=== PATIENT | female | born 1965 | race African-American/Black ===

== ENCOUNTER 2019-05-18 17:24 | Emergency (ER) | payer BC, SELFPAY ==
[2019-05-18 17:28] VITALS: BP 137/88; PULSE 87; RESP 24; TEMP 36.8; O2SAT 98
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
[2019-05-18] MEDS: LORAZEPAM 1 MG TABLET PO (17:54)
[2019-05-18 18:47] VITALS: BP 113/89; PULSE 79; RESP 20; O2SAT 99
== END 2019-05-18 18:48 | disposition home or self-care (01) ==
PROVIDERS: Emergency Provider Emergency Medicine
DX: F43.0 Acute stress reaction (principal); Z87.891 Personal history of nicotine dependence
CPT/HCPCS: 99283; A9270

== ENCOUNTER 2020-02-14 19:53 | Inpatient (IN) | payer BC, SELFPAY ==
[2020-02-14] VITALS (7 sets, daily range): BP systolic 101–127; BP diastolic 61–100; PULSE 71–89; RESP 18–23; O2SAT 95–100
--- NOTE | ~2020-02-14 | CT_ITS ---
EXAMINATION: CT brain wo con DATE: 02/14/2020 21:23 INDICATION: Altered mental status. TECHNIQUE: Computed tomography (CT) of the head was performed without intravenous contrast. The mA wa s adjusted according to patient size. Iterative reconstruction technique was employed. The dose-lengt h product was 605.33 mGy-cm. COMPARISON: None FINDINGS: There is no intracranial hemorrhage, acute infarction, or abnormal intracranial mass lesion . The ventricles are normal in size. There is mild mucosal thickening in the ethmoid sinuses. The mas toid air cells are normal. IMPRESSION: 1. Normal brain. Reviewed, dictated and finalized at location A. RPERSON ANESTHESIOLOGY IMPRESSION: 1. Normal brain.
--- NOTE | ~2020-02-14 | XR_ITS ---
EXAMINATION: XR chest ET placement DATE: 02/15/2020 01:05 INDICATION: Intubation. TECHNIQUE: A single frontal view of the chest was obtained. COMPARISON: Chest single view 02/14/2020 FINDINGS: There is a diffuse interstitial pattern, consistent with mild pulmonary edema. No pleural e ffusion or pneumothorax. The heart size is normal. The endotracheal tube tip is 3.4 cm above the wolf na. The nasogastric tube tip is beyond the inferior margin of the radiograph, but at least to the sto mach. An electronic device overlies the mediastinum. IMPRESSION: 1. Mild pulmonary edema. Reviewed, dictated and finalized at location A. AL SCIENCE PROFESSOR IMPRESSION: 1. Mild pulmonary edema.
--- NOTE | ~2020-02-14 | XR_ITS ---
EXAMINATION: XR chest 1V portable DATE: 02/14/2020 21:27 INDICATION: Transient alteration of awareness. TECHNIQUE: A single frontal view of the chest was obtained. COMPARISON: None. FINDINGS: There is a diffuse interstitial pattern. There are airspace opacities in the perihilar jose ons. These findings are consistent with pulmonary edema. No pleural effusion or pneumothorax. The hea rt size is normal. An electronic device overlies the mediastinum. IMPRESSION: 1. Moderate pulmonary edema. Reviewed, dictated and finalized at location A. RVOIR ENGINEER
--- NOTE | ~2020-02-14 | XR_ITS ---
EXAMINATION: XR chest 1V portable EXAM DATE: 02/17/2020 06:22 INDICATION: Respiratory failure. TECHNIQUE: Portable AP frontal chest x-ray was obtained. Comparison is made to prior examination from 02/16/2020, 02/15/2020. FINDINGS: Endotracheal tube adequately positioned. There is a nasogastric tube seen with tip collimat ed off the study, but below the left hemidiaphragm. Small amount of left perihilar linear opacity most consistent with atelectasis. Infection not exclud able. There is no confluent consolidation, sizable pleural effusion or pneumothorax. There are no oss eous abnormalities identified. IMPRESSION: Small amount of left perihilar opacity most likely atelectasis. Tubes in position. NTER HAND Reviewed, dictated and finalized at location A. IMPRESSION: Small amount of left perihilar opacity most likely atelectasis. Tub es in position.
--- NOTE | ~2020-02-14 | CT_ITS ---
EXAMINATION: CT cervical spine wo con DATE: 02/14/2020 21:23 INDICATION: Neck injury. TECHNIQUE: Computed tomography (CT) of the cervical spine was performed without intravenous contrast. Automated exposure control and iterative reconstruction technique were employed. The dose-length pro duct was 241.50 mGy-cm. COMPARISON: None FINDINGS: The lung apices demonstrate smooth septal thickening and left apical groundglass opacities, consistent with pulmonary edema. There is kyphosis of cervical spine. Vertebral body heights are nor mal. There is severely decreased disc height from C4-C5 through C6-C7. The following disc levels are specifically discussed: C2-C3: There is mild bilateral uncovertebral joint osteoarthritis. There is severe right and moderate left facet joint osteoarthritis. There is mild right neural foraminal stenosis. There is no central canal stenosis. C3-C4: There is mild bilateral uncovertebral joint osteoarthritis. There is severe right and moderate left facet joint osteoarthritis. There is mild right neural foraminal stenosis. There is no central canal stenosis. C4-C5: There is severe bilateral uncovertebral joint osteoarthritis. There is mild right and severe l eft facet joint osteoarthritis. There is mild bilateral neural foraminal stenosis. There is mild cent ral canal stenosis. C5-C6: There is severe bilateral uncovertebral joint osteoarthritis. There is mild bilateral facet brian int osteoarthritis. There is mild bilateral neural foraminal stenosis. There is mild central canal st enosis. C6-C7: There is severe bilateral uncovertebral joint osteoarthritis. There is mild right and moderate left facet joint osteoarthritis. There is mild bilateral neural foraminal stenosis. There is mild ce ntral canal stenosis. C7-T1: There is no uncovertebral joint osteoarthritis. There is severe bilateral facet joint osteoart hritis. There is mild bilateral neural foraminal stenosis. There is no central canal stenosis. IMPRESSION: 1. No fracture. 2. Severe cervical spondylosis. 3. Pulmonary edema. Reviewed, dictated and finalized at location A. EMIC SPECIALIST
--- NOTE | ~2020-02-14 | XR_ITS ---
EXAMINATION: XR chest 1V portable EXAM DATE: 02/16/2020 06:24 INDICATION: Respiratory failure. TECHNIQUE: Portable AP frontal chest x-ray was obtained. Comparison is made to prior examination from 02/15/2020. FINDINGS: Endotracheal tube is 3 cm above the darnell. There is a nasogastric tube seen with tip colli mated off the study, but below the left hemidiaphragm. There is no confluent consolidation, sizable pleural effusion or pneumothorax. There are no osseous abnormalities identified. Compared to last 2 days, previously seen indistinct reticulation, acute airspace disease has essentia lly resolved. IMPRESSION: No focal airspace disease. Tubes in position. Reviewed, dictated and finalized at location A. OUND SALES REPRESENTATIVE
--- NOTE | ~2020-02-14 | XR_ITS ---
EXAMINATION: XR chest 1V portable EXAM DATE: 02/18/2020 07:32 INDICATION: Pneumonia. TECHNIQUE: Portable AP frontal chest x-ray was obtained. Comparison is made to prior examination from 02/17/2020. FINDINGS: Patient has been extubated. Some scattered opacities with linear components, consistent wit h infection and atelectasis. There is no pneumothorax suspected. There are no pleural effusions. The cardiomediastinal silhouette is prominent but magnified on this AP technique. Monitoring device. Ther e are no osseous abnormalities identified. IMPRESSION: Scattered small regions of atelectasis and infiltrate. Reviewed, dictated and finalized at location A. OSIVES WORKER
--- NOTE | 2020-02-14 19:59 | PC.NURSE ---
4mg narcan given by prashanth gonsales @ 1952 4mg narcan given by prashanth gonsales @ 1955 pt becomes more responsive at this time, able to tell us her name. 1956 20g placed in RAC by dilcia gonsales 1956 BS checked by yvonne at this time:305 1956 pt no longer being bagged. tanvi currently sunctioning pt, pt placed on nonrebreather 1958 pt following commands at this time, able to squeeze mds hand and wiggle toes 1999 pt given 4mg narcan by lucia gonsales at this time 2003 BS checked again by katie @ 2006, result 291 ABG's being drawn by respiratory at this time, pt stating ouch. 2008
[2020-02-14 20:03] LABS: Glucose Point of Care 305 (65-105)
[2020-02-14 20:11] LABS: Glucose Point of Care 291 (65-105)
[2020-02-14 20:12] LABS: Base Excess ABG -5.1 mEq/l (+/-2.0); Fractional Inspired Oxygen 100 %; HCO3 ABG 22.2 mEq/l (22.0-26.0); Oxygen Content ABG 16.7 %vol (16.0-22.0); Oxygen Saturation ABG 99.2 % (95.0-100.0); Oxyhemoglobin 95.6 % THb (90.0-100.0); PO2 FiO2 Ratio Arterial Blood 2.01 %; Reduced Hemoglobin 1.4 %THb (0-5.0); Total Hemoglobin 12.1 g/dL (12.0-18.0)
[2020-02-14 20:14] LABS: Device NON-REBREATHER MASK; Modified Allen's Test Pass; Site Drawn RIGHT RADIAL; pH ABG 7.257 (7.350-7.450)
--- NOTE | 2020-02-14 20:16 | ECG_ITS ---
Measurements Intervals [place] Rate: 77 P: 46 IL: 139 QRS: 5 QRSD: 95 T: 65 QT: 394 QTc: 446 Interpretive Statements SINUS RHYTHM BORDERLINE ST-T WAVE ABNORMALITY- ANTERIOR LEADS BASELINE ARTIFACT- I, II, III, AVL, AVF V1-V5 BORDERLINE ECG Electronically Signed On 02-15-2020 7:54:28 [employer] ATTENDANT by John Pack D.O.
--- NOTE | 2020-02-14 20:20 | ED.AMS ---
HPI - Altered Mental Status General Chief Complaint: Altered Mental Status Stated Complaint: unresponsive Time Seen by Provider: 02/14/20 20:16 Source: family and EMS Mode of arrival: EMS Limitations: clinical condition History of Present Illness HPI narrative: Patient is a 54-year-old female who presents for evaluation of altered mental status. EMS reports that the patient was found at home, unresponsive in the bathroom by her . Patient's had last spoken to her around 5 PM, they are making plans for dinner. When patient's arrived at home around 6:45 PM, he could not find her in the house, finally found her unresponsive in the bathroom. EMS was called, patient always had pulse, blood glucose was greater than 300. Patient was started on IV fluids, given intranasal Narcan without improvement in her symptoms. Per EMS, patient was found with white powder on the bathroom floor. Patient's states that she has a recent history suspicious for drug use although she has never admitted what drugs she has used to him. Patient recently was question regarding drug abuse, police were involved, and then patient flew out to visit a family member and had been gone for a week before returning a few days ago. Patient is responsive to Narcan, grimacing. Patient did have nasal trumpet placed in route and bag mask ventilation by EMS. Related Data Allergies Allergy/AdvReac Type Severity Reaction Status Date / Time No Known Allergies Allergy Verified 09/17/19 16:00 Review of Systems Review of Systems: ROS unobtainable: Yes unobtainable due to mental status PMFSH Past Medical History Medical History No significant past medical history Surgical History Surgical History (System 09/17/19 @ 16:00 by Dee Perry) History of total hysterectomy with bilateral salpingo-oophorectomy (BSO) Social History Social History Smoking status: Former smoker Gender identity (if verbalized by the patient): Female Exam Narrative: Exam Narrative: GENERAL: Somnolent, responsive to verbal command HEAD: Normocephalic, atraumatic. EYES: 4+ PERRLA and EOMI. ENT: Nares clear, no rhinorrhea or epistaxis. Mucous membranes moist. NECK: Supple. CHEST: No tachypnea, somewhat sonorous respirations, no crackles, no wheezing HEART: Regular rate, sinus rhythm ABDOMEN:Non distended, non tender EXTREMITIES: Normal range of motion. No edema. SKIN: Warm, dry, no rash. NEURO: Moving all extremities spontaneously. No posturing. No clonus. Patient able to resist gravity in bilateral upper and lower extremities. Course Vital Signs Vital signs: Vital Signs Pulse Rate 89 02/14/20 19:50 Respiratory Rate 18 02/14/20 19:50 Blood Pressure 111/61 02/14/20 19:50 Pulse Rate 71 02/14/20 23:00 Respiratory Rate 18 02/14/20 23:00 Blood Pressure 101/72 02/14/20 23:00 Pulse Oximetry 100 02/14/20 23:00 MDM - Altered Mental Status MDM Narrative Medical decision making narrative: Patient presented as a unresponsive patient via EMS after being found at home collapsed in the bathroom. At the time of assessment, patient is normotensive, no tachycardia, she does have sonorous respirations, thus she was given doses of IV Narcan with good improvement in her mental status. She was also given Zofran and IV fluids. Patient was placed on a Narcan infusion as well. Patient did not require intubation as she was protecting her airway and had improvement in mentation with the Narcan. Patient with no leukocytosis, stable anemia. No electrolyte derangement. No known history of diabetes, glucose is elevated, she does not have an anion gap, no ketones in the urine. The leukocytosis may be secondary to stress response from the apnea from likely opiate overdose. Urine drug screen confirms polysubstance abuse. Patient with a lactic a
[2020-02-14] MEDS: SODIUM CHLORIDE 0.9% IV 1,000 ML 999 ML IV CONT (20:41)
[2020-02-14 20:42] LABS: Basophils Percent Auto 0.3 % (0.2-1.2); Eosinophils Absolute Auto 0.2 K/mm3 (0-0.3); Eosinophils Percent Auto 2.3 % (0-4.4); Hematocrit 37.1 % (37.0-47.0); Hemoglobin 11.7 g/dL (12.0-15.0); Immature Granulocyte Absolute 0.03 K/mm3 (0.00-0.031); Immature Granulocyte Percent A 0.4 % (0-0.5); Lymphocytes Absolute Auto 2.58 K/mm3 (0.9-3.2); Lymphocytes Percent Auto 36.5 % (18.3-44.2); Mean Corpuscular HGB Conc 31.5 g/dl (32-36); Mean Corpuscular Volume 98.4 fl (80-100); Mean Platelet Volume 10.4 fl (7.4-10.4); Monocytes Absolute Auto 0.3 K/mm3 (0.1-0.6); Monocytes Percent Auto 4.1 % (2.6-8.5); Neutrophils Percent Auto 56.4 % (45.5-73.1); Platelet Count Result 251 k/mm3 (150-375); Red Blood Count 3.77 M/mm3 (4.2-5.4); White Blood Count 7.1 K/mm3 (4.5-10.0)
[2020-02-14 20:47] LABS: Add Urine Microscopic? YES; Appearance Urine Clear (Clear); Bilirubin Urine Negative (Negative); Blood Urine Negative (Negative); Color Urine Yellow (Yellow); Glucose Urine UA 3+ mg/dL (Negative); Ketones Urine Negative (Negative); Leukocyte Esterase Ur Negative LEU/UL (Negative); Mucus Urine Rare /lpf; Nitrate Urine Negative (Negative); Protein Urine 2+ mg/dL (Negative); Specific Grav Ur 1.016 (1.001-1.035); Squamous Epithelial Cell Urine Occasional /hpf (Few); Urobilinogen Urine Negative mg/dL (<2.0); WBC Urine 0-3 /hpf
[2020-02-14 20:50] LABS: Prothrombin Time 13.8 Seconds (11.1-14.7)
[2020-02-14 20:51] LABS: Partial Thromboplastin Time 26.5 SECONDS (22.3-36.8)
[2020-02-14 20:53] LABS: Creatine Kinase 122 U/L (30-135); Lactic Acid Reflex 5.3 mmol/L (0.7-2.1)
[2020-02-14 20:55] LABS: Alanine Aminotransferase 15 U/L (4-35); Albumin Level 3.7 g/dL (3.5-5.1); Alkaline Phosphatase 63 U/L (38-126); Anion Gap 12 mmol/L (8-16); Aspartate Amino Transferase 24 U/L (14-36); Bilirubin,Total 0.2 mg/dL (0.2-1.3); Blood Urea Nitrogen 16 mg/dL (7-17); CRP 1.7 mg/dL (<1.0); Calcium 8.4 mg/dL (8.4-10.2); Carbon Dioxide 26 mmol/L (22-30); Chloride 99 mmol/L (98-107); Estimated Glomerular Filt Rate 58; Glucose 343 mg/dL (65-105); Potassium 4.6 mmol/L (3.4-5.0); Sodium 137 mmol/L (137-145)
[2020-02-14 20:56] LABS: Acetaminophen < 10 ug/mL (10-30); Ethanol < 10 mg/dL (<10); Salicylate 1.2 mg/dL (2-20)
[2020-02-14 20:57] LABS: Alveolar/Arterial O2 Gradient 97.6 mmHg; Base Excess ABG -0.8 mEq/l (+/-2.0); Carboxyhemoglobin 2.2 % THb (0-2.0); Fractional Inspired Oxygen 35 %; Methemoglobin ABG 0.1 %THb (0-1.5); Oxygen Content ABG 15.4 %vol (16.0-22.0); Oxygen Saturation ABG 96.1 % (95.0-100.0); Oxyhemoglobin 93.6 % THb (90.0-100.0); PCO2 ABG 52.7 mmHg (35.0-45.0); PO2 ABG 90.7 mmHg (80.0-100.0); PO2 FiO2 Ratio Arterial Blood 2.59 %; Reduced Hemoglobin 4.1 %THb (0-5.0); Total Hemoglobin 11.6 g/dL (12.0-18.0); pH ABG 7.311 (7.350-7.450)
[2020-02-14 20:58] LABS: Barbiturate Screen Urine Negative (Negative); Benzodiazepines Screen Urine Positive (Negative)
[2020-02-14 20:59] LABS: Device VENTURI MASK; Modified Allen's Test Pass; Site Drawn RIGHT RADIAL
[2020-02-14 20:59] LABS: Cannabinoid Screen Urine Positive (Negative); Cocaine Screen Urine Negative (Negative); Methadone Screen Urine Negative (Negative); Opiate Screen Urine Positive (Negative); Phencyclidine Screen Urine Negative (Negative)
[2020-02-14 21:05] LABS: Troponin I < 0.012 ng/mL (0.000-0.034)
[2020-02-14] MEDS: ONDANSETRON INJ 4 MG/2 ML VIAL IV PUSH (21:05)
[2020-02-14 21:14] LABS: Amphetamine Screen Urine Positive (Negative)
[2020-02-14] MEDS: AMPICILLIN SULB 1.5 GM/NS 50ML 1.5 GM/50 ML VIAL IVPB (21:39)
[2020-02-14] MEDS: SODIUM CHLORIDE 0.9% IV 2,000 ML 999 ML IV CONT (21:41)
[2020-02-14 22:39] LABS: Beta HCG Quantitative < 2.39 mIU/ML
[2020-02-14 23:14] LABS: Alveolar/Arterial O2 Gradient 86.2 mmHg; Base Excess ABG -1.2 mEq/l (+/-2.0); Carboxyhemoglobin 1.5 % THb (0-2.0); Fractional Inspired Oxygen 35 %; HCO3 ABG 26.1 mEq/l (22.0-26.0); Methemoglobin ABG 0.1 %THb (0-1.5); Oxygen Content ABG 15.2 %vol (16.0-22.0); Oxygen Saturation ABG 96.6 % (95.0-100.0); Oxyhemoglobin 94.8 % THb (90.0-100.0); PO2 ABG 98.3 mmHg (80.0-100.0); PO2 FiO2 Ratio Arterial Blood 2.81 %; Reduced Hemoglobin 3.6 %THb (0-5.0); Total Hemoglobin 11.3 g/dL (12.0-18.0)
[2020-02-14 23:16] LABS: Device BIPAP; Modified Allen's Test Pass; Site Drawn LEFT RADIAL; pH ABG 7.286 (7.350-7.450)
[2020-02-14 23:17] LABS: Expiratory Pressure 5 cmH2O; Inspiratory Pressure 12 cmH2O
--- NOTE | 2020-02-14 23:37 | PM.IMHP ---
H&P: HPI History of Present Illness Date/Time: 02/14/20 23:37 Chief complaint: Overdose Narrative: This is a 54 year old Female who presented to the hospital secondary to acute altered mental status. The patient was apparently found unresponsive at home by her . According to ER provider the patient's had left her home alone for about an hour and forty five minutes and found her unresponsive when he came home. She was found with white powder on the bathroom floor. The patient's had reported that he had suspected that the patient might have been recently using drugs although she had not admitted it to him. In the ER tonight the patient has been treated with multiple doses of narcan and placed on a narcan IV drip. She is now easily arousable but still very confused and cannot answer any questions appropriately. She opens her eyes to her name being called but does not know where she is and makes incoherent sounds. On my encounter with the patient she is on Bipap and doing well but no further history is obtainable secondary to her mental status. The patient's has already gone home for the night. Review of Systems Review of Systems: ROS unobtainable: Yes unobtainable due to mental status PMFSH Past Medical History Medical History No significant past medical history Surgical History Surgical History History of total hysterectomy with bilateral salpingo-oophorectomy (BSO) Social History Social History Smoking status: Former smoker Gender identity (if verbalized by the patient): Female Comments Past medical/surgical/family/social histories are not obtainable from the patient. Meds Home Medications and Allergies Home Medications Medication Instructions Recorded Confirmed Type lorazepam 1 mg PO TID PRN #10 tablet 05/18/19 Rx Allergies Allergy/AdvReac Type Severity Reaction Status Date / Time No Known Allergies Allergy Verified 09/17/19 16:00 Vital Signs Vital Signs - 24 hr 02/14/20 19:50 02/14/20 20:18 02/14/20 20:45 Pulse Rate 89 85 71 Respiratory Rate 18 23 H 21 H Blood Pressure 111/61 127/100 H Pulse Oximetry 95 96 02/14/20 20:54 02/14/20 21:44 02/14/20 22:10 Pulse Rate 72 71 Respiratory Rate 18 20 Blood Pressure 102/64 Pulse Oximetry 100 99 100 02/14/20 23:00 Pulse Rate 71 Respiratory Rate 18 Blood Pressure 101/72 Pulse Oximetry 100 Exam Const: General: other (somnolent but arousable) Nutritional Appearance: well nourished Orientation/consciousness: confusion and patient obtunded HENMT: Head: normal to inspection General nose exam: Normal external nose present Face and sinus: normal facial exam Mouth: Yes Normal oral and palatal mucosa present and Yes oropharynx normal Eyes: Pupils: Equal, round and reactive pupils present Neck: Neck: supple and no JVD Thyroid: thyroid normal Lymphatic: lymphadenopathy not noted Resp: Effort & Inspection: normal respiratory effort Auscultation: clear to auscultation bilaterally Cardio: Rate: regular rate Rhythm: regular rhythm Heart sounds: no murmurs GI: Inspection: normal to inspection Auscultation: normal bowel sounds Skin: General skin exam: normal color and no rashes or lesions noted Neuro: General: confusion and patient obtunded Cranial nerves: Yes Equal, round and reactive pupils present Extrem: General: normal to inspection and no edema H&P: Results Labs Labs: Short CBC 02/14/20 Range/Units 20:25 WBC 7.1 (4.5-10.0) K/mm3 Hgb 11.7 L (12.0-15.0) g/dL Hct 37.1 (37.0-47.0) % Plt Count 251 (150-375) k/mm3 BMP 02/14/20 20:25 Sodium 137 Potassium 4.6 Chloride 99 Carbon Dioxide 26 BUN 16 Creatinine 1.00 Glucose 343 H Calcium 8.4 Cardiac Enzymes 02/14/20 02/14/20 Range/Units
[2020-02-14 23:38] LABS: Reflex Lactic Acid Yes or No Add Lactic
[2020-02-15] VITALS (40 sets, daily range): BP systolic 96–126; BP diastolic 55–88; PULSE 51–91; RESP 12–29; TEMP 36.8–37.3; O2SAT 99–100
[2020-02-15 00:20] LABS: Glucose Point of Care 107 (65-105)
--- NOTE | 2020-02-15 00:33 | PC.NURSE ---
chata in room preparing to intubate pt at this time
--- NOTE | 2020-02-15 00:34 | PC.NURSE ---
100mg succ given to pt at this time per chata verbal order 0035 kalliin intubating pt with 7.5 tube at this time 0038
--- NOTE | 2020-02-15 00:43 | PC.NURSE ---
2mg versed given at this time per ladin verbal order
--- NOTE | 2020-02-15 00:52 | PC.NURSE ---
Addendum entered by Flavia Rogers RN 02/15/20 02:52: pt given 2mg versed per ladin verbal orders 0046 pt given 2mg versed per ladin verbal orders 0050 pt given 100succ at 0050 per ladin verbal order. OG placed in pt by olga gonsales at 0053. 18F, 60 at teeth. ETT tube 26 at teeth. Original Note: pt given 2mg versed per ladin verbal orders 0046 pt given 2mg versed per ladin verbal orders 0050 pt given 100succ at 0050 per ladin verbal order. pt placed in soft restraints at this time. 0050 OG placed in pt by olga gonsales at 0053. 18F, 60 at teeth. ETT tube 26 at teeth.
[2020-02-15] MEDS: FENTANYL 2,500MCG/NS250ML(*CRX 2,500 MCG/250 ML BAG IV CONT (01:00)
--- NOTE | 2020-02-15 01:00 | PC.NURSE ---
pt given 50mg succ by this rn per verbal order shruthi brizuela md
--- NOTE | 2020-02-15 01:00 | PC.NURSE ---
pt placing central line in right femoral at this time
--- NOTE | 2020-02-15 01:37 | WPDPROCEDUR ---
Procedures Intubation Intubation Date: 02/15/20 Intubation Time: 00:30 A pre-procedural Time-Out was completed immediately before starting the procedure and confirmed: Patient Identification, Site, Procedure, Patient Position and the Availability of Requisite Equipment: Yes Sedative: versed Mg given: 2 Paralytic: succinylcholine Mg given: 100 Laryngoscope: Emilee ET tube size: 7.5 Tube secured depth (cm): 26 Tube secured location: teeth Tube placement confirmation: visualized tube passing through cords, equal breath sounds bilaterally, no breath sounds over epigastrium and confirmation by capnometry Patient tolerated procedure: well Intubation complications: none Additional comments: Date of service was 02/15/2020 at 12:30 am.
--- NOTE | 2020-02-15 01:38 | WPDPROCEDUR ---
Procedures Central Line Placement Right Femoral: Central Line Date: 02/15/20 Central Line Time: 01:20 Discussed w/ the patient/family/POA,the placement of a central venous catheter, including its clinical necessity/indication & associated potential risks, benifits and alternatives.: Yes Time Out Performed: Yes Patient Position: supine Patient placed on monitor/pulse ox: Yes Provider Prep: mask, sterile gown, sterile gloves, Max. sterile barrier precautions and hand hygiene with conventional soap/water or alcohol based hand rub Central line prep: 2% Chlorhexidine scrub Sterile US Technique with sterile gel/sterile probe covers: Yes Central line lumen inserted: triple Citizen [place]: 7 Length (cm): 20 Depth of Insertion (cm): 20 Post procedure: sutured in place, good blood return, all ports aspirated, flushed, capped, hemostatic disc, antimicrobial disc and aseptic technique maintained throughout procedure Complications: none Additional comments: Date of service was 02/15/2020 at 01:20 hrs.
[2020-02-15] MEDS: PROPOFOL IV EMULSION 100 ML 2.8 MG (02:31)
[2020-02-15 02:33] LABS: Alveolar/Arterial O2 Gradient 254.9 mmHg; Carboxyhemoglobin 1.2 % THb (0-2.0); Fractional Inspired Oxygen 60 %; HCO3 ABG 22.2 mEq/l (22.0-26.0); Methemoglobin ABG 0.3 %THb (0-1.5); Oxygen Content ABG 15.6 %vol (16.0-22.0); Oxyhemoglobin 96.4 % THb (90.0-100.0); PCO2 ABG 28.7 mmHg (35.0-45.0); PO2 ABG 141.3 mmHg (80.0-100.0); PO2 FiO2 Ratio Arterial Blood 2.36 %; Reduced Hemoglobin 2.1 %THb (0-5.0); Total Hemoglobin 11.3 g/dL (12.0-18.0); pH ABG 7.507 (7.350-7.450)
[2020-02-15 02:34] LABS: Device VENTILATOR; Modified Allen's Test Pass; Site Drawn RIGHT RADIAL
[2020-02-15 02:35] LABS: Arterial Blood Gas PEEP 5 cmH2O; Arterial Blood Gas Tidal Volume 480 ml; Arterial Blood Gas Vent Mode CMV; Arterial Blood Gas Ventilator rate 18 /MIN
[2020-02-15 02:36] LABS: Hemoglobin A1C 4.9 % (<5.7)
[2020-02-15] MEDS: AMPICILLIN SULB 1.5 GM/NS 50ML 1.5 GM/50 ML VIAL IVPB ×4 (04:21→21:08)
[2020-02-15] MEDS: CENTRAL LINE FLUSH 10 ML IV PUSH ×4 (04:22→21:10)
--- NOTE | 2020-02-15 05:03 | ADMIMU ---
This patient, Shaneka Dillon, was admitted to ICU status, and placed in Intensive Care Unit-8. Patient/family oriented to hospital policies and general routines including ID bracelet, bed and alarms, visiting hours, pain management, procedures, bathroom and other care routines, personal items, smoking policy, room service/diet, and visiting hours. Valuables list has been completed. Information on how to activate the Rapid Response Team has been discussed. Patient/Family are encouraged to report perceived risks to care and to ask questions if they do not understand what they are told or what they should do.
--- NOTE | 2020-02-15 05:03 | PC.NURSE ---
Admission information given by patient's Tu Patterson. He does not know family history and states he will have her aunt or cousin call up to provide it today.
[2020-02-15 07:39] LABS: Glucose Point of Care 103 (65-105)
[2020-02-15] MEDS: SODIUM CHLORIDE 0.9% IV 1,000 ML 125 ML IV CONT (09:57)
--- NOTE | 2020-02-15 11:53 | WPDCNINT ---
Assessment and Plan Assessment and plan (1) Acute respiratory failure with hypercapnia: Code(s): J96.02 - Acute respiratory failure with hypercapnia Status: Acute Assessment and Plan: secondary to polysubstance overdose and encephalopathy may have aspirated continue mechanical ventilation at this time ABG and chest x-ray review on empiric antibiotic patient was intubated last night will give 24 hours for the drugs to wear off before weaning trial hold further IV fluids COVID-19 PCR is pending (2) Pulmonary edema: Code(s): J81.1 - Chronic pulmonary edema Status: Acute Assessment and Plan: patient does not have any documented history of congestive heart failure but the CT and chest x-ray suggest pulmonary edema check BNP and echocardiogram decreased IV fluid (3) Sepsis: Code(s): A41.9 - Sepsis, unspecified organism Status: Acute Assessment and Plan: patient presented with elevated lactic acid level. may have aspirated when she was obtunded chest x-ray reviewed UA negative lactic acid level has normalized since given IV fluids blood cultures are pending patient on empiric vancomycin and Unasyn (4) Acute encephalopathy: Code(s): G93.40 - Encephalopathy, unspecified Status: Acute Assessment and Plan: toxic metabolic encephalopathy head CT was negative TSH was normal UDS positive for opiates amphetamine benzodiazepine and cannabinoids patient responded to Narcan currently sedated but does wake up and follow commands (5) Opiate overdose: Qualifiers: Encounter type: initial encounter Injury intent: undetermined intent Qualified Code(s): T40.604A - Poisoning by unspecified narcotics, undetermined, initial encounter Code(s): T40.601A - Poisoning by unspecified narcotics, accidental (unintentional), initial encounter Status: Acute Assessment and Plan: patient earlier was on narcan infusion but now is sedated and intubated (6) Polysubstance abuse: Code(s): F19.10 - Other psychoactive substance abuse, uncomplicated Status: Acute Assessment and Plan: currently sedated (7) Lactic acidosis: Code(s): E87.2 - Acidosis Status: Acute Assessment and Plan: May be secondary to her overdose. level has normalized after patient receiving IV fluids (8) Abnormal glucose: Code(s): R73.09 - Other abnormal glucose Status: Acute Assessment and Plan: normal HgbA1c. could be secondary to stress reaction Accuchecks, SSI Coverage, Hypoglycemic protocol. (9) Suspected 2019 novel coronavirus infection: Code(s): Z20.828 - Contact with and (suspected) exposure to other viral communicable diseases Status: Acute Assessment and Plan: COVID-19 suspected. SARS-CoV-2 PCR sent and results pending Patient is in Airborne, Droplet and Contact Isolation Additional Plan DVT prophylaxis - start Lovenox Stress ulcer prophylaxis - start Pepcid Nutrition - NPO Code Status - Full Code Total Critical Care Time - 32 minutes Due to a high probability of clinically significant, life threatening deterioration, the patient required my highest level of preparedness to intervene emergently and I personally spent this critical care time directly and personally managing the patient. This critical care time included obtaining a history; examining the patient; pulse oximetry; ordering and review of studies; arranging urgent treatment with development of a management plan; evaluation of patient's response to treatment; frequent reassessment; and discussions with other providers. It was exclusive of separately billable procedures and treating other patients and teaching time. Please see Assessment and Plan section and the rest of the note for further information on patient assessment and treatment [employer] Technician Consult Note Consult date: 02/15/20 Time S
[2020-02-15] MEDS: DEXTROSE 50% 25 GM/50 ML SYRINGE IV PUSH (13:16)
[2020-02-15 13:35] LABS: Glucose Point of Care 60 (65-105)
[2020-02-15 13:35] LABS: Glucose Point of Care 156 (65-105)
[2020-02-15 13:40] LABS: NT Pro B Type Natriuretic Pept 983 PG/ML (5-100)
--- NOTE | 2020-02-15 13:45 | PM.IMPN ---
Progress Note: A&P Assessment and Plan (1) Acute respiratory failure with hypercapnia: Code(s): J96.02 - Acute respiratory failure with hypercapnia Status: Acute Assessment and Plan: Secondary to opiate drug overdose. intubated and mechanically ventilated. Chest x-ray looks to be possible CHF which could be secondary to overdose or even underlying cardiac disease. May have aspirated also. Check echocardiogram and empirically placed on antibiotics. (2) Acute encephalopathy: Code(s): G93.40 - Encephalopathy, unspecified Status: Acute Assessment and Plan: Appears to be secondary to acute drug overdose. Neurochecks. Aspiration precautions. NPO, CT brain WNL. (3) Opiate overdose: Qualifiers: Encounter type: initial encounter Injury intent: undetermined intent Qualified Code(s): T40.604A - Poisoning by unspecified narcotics, undetermined, initial encounter Code(s): T40.601A - Poisoning by unspecified narcotics, accidental (unintentional), initial encounter Status: Acute Assessment and Plan: IV Narcan which has been weaned off (4) Polysubstance abuse: Code(s): F19.10 - Other psychoactive substance abuse, uncomplicated Status: Acute Assessment and Plan: The patient will need to be counseled on drug abuse when she is no longer intoxicated. (5) Lactic acidosis: Code(s): E87.2 - Acidosis Status: Acute Assessment and Plan: May be secondary to her overdose. with rapid returned to normal with hydration thought secondary to the overdose (6) Amphetamine abuse: Code(s): F15.10 - Other stimulant abuse, uncomplicated Status: Acute Assessment and Plan: The patient will need to be counseled on amphetamine abuse and cessation. (7) Abnormal glucose: Code(s): R73.09 - Other abnormal glucose Status: Acute Assessment and Plan: A1c only 4.7. elevated blood sugar probably secondary to stress (8) Suspected 2019 novel coronavirus infection: Code(s): Z20.828 - Contact with and (suspected) exposure to other viral communicable diseases Status: Acute Assessment and Plan: The patient has been swabbed for Covid-19. Continue droplet isolation. Continue supportive care. (9) DVT prophylaxis: Code(s): Z29.9 - Encounter for prophylactic measures, unspecified Status: Acute Assessment and Plan: Lovenox Subjective Date/time seen: 02/15/20 13:45 Interval history: date of visit 02/14. 54-year-old female found down by her with apparent drug overdose. Lethargic and brought to the emergency room where she is eventually intubated. Urine drug screen positive for benzodiazepine, amphetamines, opiates, and cannabis presently intubated and mechanically ventilated Exam Narrative: Exam Narrative: blood pressure 100 over 56 pulse is 58 saturating 100% on FiO2 of 40 with 5 of PEEP pupils equal reactive to light sclera anicteric neck supple lungs clear CV regular rate rhythm no murmurs abdomen soft nontender extremities without edema good distal pulses neuro sedated and intubated Objective Data Vital Signs Vital Signs: Vital Signs - 24 hr 02/14/20 19:50 02/14/20 20:18 02/14/20 20:45 Temperature Pulse Rate 89 85 71 Respiratory Rate 18 23 H 21 H Blood Pressure 111/61 127/100 H Pulse Oximetry 95 96 02/14/20 20:54 02/14/20 21:44 02/14/20 22:10 Temperature Pulse Rate 72 71 Respiratory Rate 18 20 Blood Pressure 102/64 Pulse Oximetry 100 99 100 02/14/20 23:00 02/15/20 00:04 02/15/20 00:16 Temperature Pulse Rate 71 69 68 Respiratory Rate 18 19 20 Blood Pressure 101/72 109/71 Pulse Oximetry 100 100 100 02/15/20 00:40 02/15/20 01:00 02/15/20 01:06 Temperature Pulse Rate 88 Respiratory Rate 20 Blood Pressure Pulse Oximetry 100 100 02/15/20 01:34 02/15/20 01:42 02/15/20 02:01 Temperature Pulse R
[2020-02-15] MEDS: ENOXAPARIN 40 MG/0.4 ML SYRINGE SUB-Q (14:00)
[2020-02-15 18:09] LABS: Glucose Point of Care 77 (65-105)
[2020-02-15] MEDS: FAMOTIDINE 20 MG TABLET PO (21:09)
[2020-02-15 21:18] LABS: SARS-CoV-2 RNA PCR Negative
[2020-02-15 21:34] LABS: Glucose Point of Care 106 (65-105)
[2020-02-16] VITALS (42 sets, daily range): BP systolic 88–159; BP diastolic 54–88; PULSE 34–76; RESP 12–24; TEMP 36.9–37.7; O2SAT 97–100; BMI 28.0
--- NOTE | 2020-02-16 | ECHO_ITS ---
Patient Info Name: Shaneka Dillon Age: 54 years : 1965 Gender: Female Ht: 67 in Wt: 163 lbs BSA: 1.88 m2 HR: 45 bpm BP: 109 / 65 mmHg Heart Rhythm: Sinus Arrhythmia, Bradycardia Technical Quality: Good Exam Date: 02/16/2020 11:19 AM Exam Location: [facility] Patient Status: Inpatient Admit Date: 02/14/2020 Staff Ordering Physician: Melchor Ibanez MD [place] Regenerator: Jarod Eduardo RDCS Attending Provider: Lucas Nicholson MD Exam Type: CA echo doppler color flow Study Info Indications J81.0 - Acute pulmonary edema Complete two-dimensional, color flow and Doppler transthoracic echocardiogram is performed. Strain analysis performed. History/Risk Factors Overdose; pulmonary edema. Summary 1. Complete two-dimensional, color flow and Doppler transthoracic echocardiogram is performed. 2. Left ventricular systolic function is normal, estimated at 55-60%. 3. There is no increased left ventricular wall thickness. 4. The left ventricular diastolic function is indeterminate. 5. Global longitudinal strain is normal at -18 %. 6. Right atrial chamber dimension is mildly enlarged. 7. Unable to estimate PA systolic pressure due to poor spectral resolution of tricuspid regurgitant jet velocity. 8. There is trace mitral valve regurgitation. 9. There is no aortic valve stenosis. 10. Dilated inferior vena cava with no collapse upon inspiration consistent with significantly elevated right atrial pressure, 15 mmHg. Left Ventricle Left ventricular chamber dimension is normal. Left ventricular systolic function is normal, estimated at 55-60%. There is no increased left ventricular wall thickness. The left ventricular diastolic function is indeterminate. Global longitudinal strain is normal at -18 %. Right Ventricle Right ventricular chamber dimension is normal. Right ventricular systolic function is normal. Left Atria Left atrial chamber dimension is normal. Right Atria Right atrial chamber dimension is mildly enlarged. Aortic Valve The aortic valve is not well visualized. There is no aortic valve stenosis. There is trace aortic valve regurgitation. Pulmonic Valve The pulmonic valve is not well visualized. There is trace pulmonic regurgitation. Mitral Valve The mitral valve has normal leaflets. There is trace mitral valve regurgitation. The mitral valve annulus is mildly calcified. Tricuspid Valve The tricuspid valve leaflets are normal. There is mild tricuspid valve regurgitation. Unable to estimate PA systolic pressure due to poor spectral resolution of tricuspid regurgitant jet velocity. Pericardium/Pleural The pericardium appears normal. There is no pericardial effusion. Inferior Vena Cava Dilated inferior vena cava with no collapse upon inspiration consistent with significantly elevated right atrial pressure, 15 mmHg. Aorta The aortic root size at the sinus of Valsalva is normal. Left Ventricular Outflow Tract Name Value Normal LVOT 2D LVOT Diameter 2.0 cm LVOT Doppler LVOT Peak Gradient 9 mmHg LVOT Mean Gradient
[2020-02-16 01:24] LABS: Glucose Point of Care 121 (65-105)
[2020-02-16 04:15] LABS: Base Excess ABG 0.7 mEq/l (+/-2.0); Carboxyhemoglobin 0.3 % THb (0-2.0); Fractional Inspired Oxygen 30 %; HCO3 ABG 23.9 mEq/l (22.0-26.0); Methemoglobin ABG 0.2 %THb (0-1.5); Oxygen Content ABG 15.6 %vol (16.0-22.0); Oxygen Saturation ABG 98.1 % (95.0-100.0); Oxyhemoglobin 96.6 % THb (90.0-100.0); PCO2 ABG 33.4 mmHg (35.0-45.0); PO2 ABG 102.7 mmHg (80.0-100.0); PO2 FiO2 Ratio Arterial Blood 3.42 %; Reduced Hemoglobin 2.9 %THb (0-5.0); Total Hemoglobin 11.4 g/dL (12.0-18.0); pH ABG 7.472 (7.350-7.450)
[2020-02-16 04:17] LABS: Arterial Blood Gas PEEP 5 cmH2O; Arterial Blood Gas Tidal Volume 480 ml; Arterial Blood Gas Vent Mode CMV; Arterial Blood Gas Ventilator rate 12 /MIN; Device VENTILATOR; Modified Allen's Test Pass; Site Drawn RIGHT RADIAL
[2020-02-16] MEDS: FENTANYL 2,500MCG/NS250ML(*CRX 2,500 MCG/250 ML BAG 12.5 MCG IV CONT (04:54)
[2020-02-16] MEDS: AMPICILLIN SULB 1.5 GM/NS 50ML 1.5 GM/50 ML VIAL IVPB ×4 (04:55→21:55)
[2020-02-16 05:14] LABS: Hematocrit 28.2 % (37.0-47.0); Hemoglobin 9.4 g/dL (12.0-15.0); Mean Corpuscular HGB Conc 33.3 g/dl (32-36); Mean Corpuscular Hemoglobin 30.4 pg (26-34); Mean Corpuscular Volume 91.3 fl (80-100); Mean Platelet Volume 9.9 fl (7.4-10.4); Platelet Count Result 198 k/mm3 (150-375); Red Blood Count 3.09 M/mm3 (4.2-5.4); Red Cell Distribution Width 14.2 % (11.5-14.5); White Blood Count 7.8 K/mm3 (4.5-10.0)
[2020-02-16 05:24] LABS: Estimated CRCL calculation 89 ml/min; Estimated Glomerular Filt Rate > 60; Magnesium 1.5 mg/dL (1.6-2.3)
[2020-02-16] MEDS: CENTRAL LINE FLUSH 10 ML IV PUSH ×4 (05:39→21:55)
[2020-02-16 07:06] LABS: Anion Gap 3 mmol/L (8-16); Blood Urea Nitrogen 7 mg/dL (7-17); Calcium 7.9 mg/dL (8.4-10.2); Carbon Dioxide 28 mmol/L (22-30); Chloride 107 mmol/L (98-107); Estimated CRCL calculation 100 ml/min; Estimated Glomerular Filt Rate > 60; Glucose 82 mg/dL (65-105); Potassium 3.1 mmol/L (3.4-5.0); Sodium 138 mmol/L (137-145)
[2020-02-16] MEDS: MAGNESIUM SULF 2 GM/WATER 50ML 2 GM/50 ML BAG IVPB (08:30)
[2020-02-16] MEDS: POTASSIUM CHLORIDE 20 MEQ PACKET (FOR LIQUID) 40 MEQ PO (08:30)
[2020-02-16] MEDS: FAMOTIDINE 20 MG TABLET PO ×2 (08:30→20:31)
[2020-02-16] MEDS: dexmedeTOMIDine 400 MCG/100 ML 400 MCG/100 ML BAG IV CONT (10:37)
--- NOTE | 2020-02-16 11:26 | PCDIET ---
anticipating extubation today. If unable to extubate, recommend Vital 1.5 at 45mL/hr goal rate. Given 22 hour daily infusion, this will provide 1485kcal, 67g protein and 756mL free water. Agree with standard 30mL water flush every 4 hours at this time.
[2020-02-16 12:01] LABS: Glucose Point of Care 104 (65-105)
[2020-02-16] MEDS: ENOXAPARIN 40 MG/0.4 ML SYRINGE SUB-Q (14:36)
--- NOTE | 2020-02-16 15:34 | WPDINTPN ---
Progress Note: A&P Assessment and Plan (1) Acute respiratory failure with hypercapnia: Code(s): J96.02 - Acute respiratory failure with hypercapnia Status: Acute Assessment and Plan: secondary to polysubstance overdose and encephalopathy may have aspirated continue mechanical ventilation at this time ABG and chest x-ray reviewed on empiric antibiotic will switch fentanyl and Versed infusion to Precedex, will place patient on SBT once more awake and evaluate for extubation hold further IV fluids COVID-19 PCR negative (2) Pulmonary edema: Code(s): J81.1 - Chronic pulmonary edema Status: Acute Assessment and Plan: patient does not have any documented history of congestive heart failure but the CT and chest x-ray suggest pulmonary edema proBNP 983 - echocardiogram done on 02/16/2020 shows EF of 55 to 60% no aortic valve stenosis no LV thickness, LV diastolic function is indeterminate. Right atrial chamber dimension is mildly enlarged (3) Sepsis: Code(s): A41.9 - Sepsis, unspecified organism Status: Acute Assessment and Plan: patient presented with elevated lactic acid level. may have aspirated when she was obtunded chest x-ray reviewed UA negative lactic acid level has normalized since given IV fluids blood cultures are pending patient on empiric vancomycin and Unasyn, will deescalate vancomycin once blood cultures result (4) Acute encephalopathy: Code(s): G93.40 - Encephalopathy, unspecified Status: Acute Assessment and Plan: toxic metabolic encephalopathy - likely secondary to drug overdose /ingestion. head CT was negative TSH was normal UDS positive for opiates amphetamine benzodiazepine and cannabinoids patient responded to Narcan Patient awake on the ventilator and follows commands (5) Opiate overdose: Qualifiers: Encounter type: initial encounter Injury intent: undetermined intent Qualified Code(s): T40.604A - Poisoning by unspecified narcotics, undetermined, initial encounter Code(s): T40.601A - Poisoning by unspecified narcotics, accidental (unintentional), initial encounter Status: Acute Assessment and Plan: patient earlier was on narcan infusion but now is sedated and intubated (6) Polysubstance abuse: Code(s): F19.10 - Other psychoactive substance abuse, uncomplicated Status: Acute Assessment and Plan: currently sedated - will watch for withdrawal once extubated (7) Lactic acidosis: Code(s): E87.2 - Acidosis Status: Acute Assessment and Plan: May be secondary to her overdose. level has normalized after patient receiving IV fluids (8) Abnormal glucose: Code(s): R73.09 - Other abnormal glucose Status: Acute Assessment and Plan: normal HgbA1c. could be secondary to stress reaction Accuchecks, SSI Coverage, Hypoglycemic protocol. (9) Suspected 2019 novel coronavirus infection: Code(s): Z20.828 - Contact with and (suspected) exposure to other viral communicable diseases Status: Acute Assessment and Plan: COVID-19 suspected. SARS-CoV-2 PCR sent and results pending Patient is in Airborne, Droplet and Contact Isolation Additional Plan DVT prophylaxis - Lovenox Stress ulcer prophylaxis - Pepcid Nutrition - NPO Code Status - Full Code Total Critical Care Time - 32 minutes Due to a high probability of clinically significant, life threatening deterioration, the patient required my highest level of preparedness to intervene emergently and I personally spent this critical care time directly and personally managing the patient. This critical care time included obtaining a history; examining the patient; pulse oximetry; ordering and review of studies; arranging urgent treatment with development of a management plan; evaluation of patient's response to treatment; frequent reassessment; and
[2020-02-16] MEDS: MAGNESIUM SULF 2 GM/WATER 50ML 2 GM/50 ML BAG 50 GM (15:38)
--- NOTE | 2020-02-16 17:45 | PM.IMPN ---
Progress Note: A&P Assessment and Plan (1) Acute respiratory failure with hypercapnia: Code(s): J96.02 - Acute respiratory failure with hypercapnia Status: Acute Assessment and Plan: Secondary to opiate drug overdose. intubated and mechanically ventilated. Chest x-ray looks to be possible CHF which could be secondary to overdose or even underlying cardiac disease. May have aspirated also. echocardiogram normal EF was 55-60%. empirically placed on antibiotics to cover for aspiration with Unasyn and vancomycin. (2) Acute encephalopathy: Code(s): G93.40 - Encephalopathy, unspecified Status: Acute Assessment and Plan: Appears to be secondary to acute drug overdose. Neurochecks. Aspiration precautions. NPO, CT brain WNL. (3) Opiate overdose: Qualifiers: Encounter type: initial encounter Injury intent: undetermined intent Qualified Code(s): T40.604A - Poisoning by unspecified narcotics, undetermined, initial encounter Code(s): T40.601A - Poisoning by unspecified narcotics, accidental (unintentional), initial encounter Status: Acute Assessment and Plan: IV Narcan which has been weaned off (4) Polysubstance abuse: Code(s): F19.10 - Other psychoactive substance abuse, uncomplicated Status: Acute Assessment and Plan: The patient will need to be counseled on drug abuse when she is no longer intoxicated. watch for signs of withdrawal (5) Lactic acidosis: Code(s): E87.2 - Acidosis Status: Acute Assessment and Plan: . with rapid returned to normal with hydration thought secondary to the overdose (6) Amphetamine abuse: Code(s): F15.10 - Other stimulant abuse, uncomplicated Status: Acute Assessment and Plan: The patient will need to be counseled on amphetamine abuse and cessation. (7) Abnormal glucose: Code(s): R73.09 - Other abnormal glucose Status: Acute Assessment and Plan: A1c only 4.7. elevated blood sugar probably secondary to stress (8) Suspected 2019 novel coronavirus infection: Code(s): Z20.828 - Contact with and (suspected) exposure to other viral communicable diseases Status: Acute Assessment and Plan: The patient has been swabbed for Covid-19. and found to be negative (9) DVT prophylaxis: Code(s): Z29.9 - Encounter for prophylactic measures, unspecified Status: Acute Assessment and Plan: Lovenox Subjective Date/time seen: 02/16/20 17:45 Interval history: date of visit 02/15. 54-year-old female found down by her with apparent drug overdose. Lethargic and brought to the emergency room where she is eventually intubated. Urine drug screen positive for benzodiazepine, amphetamines, opiates, and cannabis presently still intubated and mechanically ventilated Exam Narrative: Exam Narrative: blood pressure 124/66 pulse is 48 saturating 99% on FiO2 of 30 with 5 of PEEP pupils equal reactive to light sclera anicteric neck supple lungs clear, CV regular rate rhythm no murmurs, external monitoring device over sternum abdomen soft nontender extremities without edema good distal pulses neuro sedated and intubated Objective Data Vital Signs Vital Signs: Vital Signs - 24 hr 02/15/20 17:55 02/15/20 17:56 02/15/20 17:58 Temperature Pulse Rate 51 L 52 L 55 L Respiratory Rate 14 14 14 Blood Pressure 98/65 L Pulse Oximetry 100 02/15/20 20:00 02/15/20 21:19 02/15/20 22:00 Temperature 37.0 C Pulse Rate 51 L 59 L 52 L Respiratory Rate 12 14 Blood Pressure 102/57 L 96/64 L Pulse Oximetry 100 100 100 02/15/20 22:47 02/16/20 00:00 02/16/20 02:00 Temperature 36.9 C Pulse Rate 52 L 46 L 57 L Respiratory Rate 12 17 Blood Pressure 88/61 L 95/60 L Pulse Oximetry 100 100 100 02/16/20 02:19 02/16/20 04:00 02/16/20 04:54 Temperature 36.9 C Pulse Rate 53 L 51 L 50 L Respiratory Rate
[2020-02-16 18:29] LABS: Glucose Point of Care 105 (65-105)
[2020-02-16] MEDS: MIDAZOLAM HCL (*CRX) 2 MG/2 ML VIAL IV PUSH (19:30)
[2020-02-16] MEDS: fentaNYL CITRATE INJ (*CRX) 100 MCG/2 ML VIAL 50 MCG IV PUSH (19:30)
[2020-02-16] MEDS: HALOPERIDOL LACTATE 5 MG/ML VIAL (19:49)
[2020-02-16] MEDS: dexmedeTOMIDine 400 MCG/100 ML 400 MCG/100 ML BAG 30.41 MCG IV CONT (20:07)
[2020-02-16] MEDS: dexmedeTOMIDine 400 MCG/100 ML 400 MCG/100 ML BAG 26.36 MCG IV CONT (23:32)
[2020-02-16 23:44] LABS: Glucose Point of Care 145 (65-105)
[2020-02-17] VITALS (23 sets, daily range): BP systolic 98–168; BP diastolic 55–95; PULSE 32–55; RESP 12–20; TEMP 36.5–37.1; O2SAT 92–100
[2020-02-17] MEDS: AMPICILLIN SULB 1.5 GM/NS 50ML 1.5 GM/50 ML VIAL IVPB ×4 (03:38→22:09)
[2020-02-17 04:14] LABS: Basophils Percent Auto 0.2 % (0.2-1.2); Eosinophils Absolute Auto 0.1 K/mm3 (0-0.3); Eosinophils Percent Auto 0.9 % (0-4.4); Hematocrit 31.3 % (37.0-47.0); Hemoglobin 10.8 g/dL (12.0-15.0); Immature Granulocyte Absolute 0.04 K/mm3 (0.00-0.031); Immature Granulocyte Percent A 0.4 % (0-0.5); Lymphocytes Absolute Auto 1.38 K/mm3 (0.9-3.2); Lymphocytes Percent Auto 13.1 % (18.3-44.2); Mean Corpuscular HGB Conc 34.5 g/dl (32-36); Mean Corpuscular Hemoglobin 30.7 pg (26-34); Mean Corpuscular Volume 88.9 fl (80-100); Mean Platelet Volume 10.2 fl (7.4-10.4); Monocytes Absolute Auto 0.9 K/mm3 (0.1-0.6); Monocytes Percent Auto 8.7 % (2.6-8.5); Neutrophils Absolute Auto 8.1 K/mm3 (1.3-6.7); Neutrophils Percent Auto 76.7 % (45.5-73.1); Platelet Count Result 212 k/mm3 (150-375); Red Blood Count 3.52 M/mm3 (4.2-5.4); Red Cell Distribution Width 13.1 % (11.5-14.5); White Blood Count 10.5 K/mm3 (4.5-10.0)
[2020-02-17 04:28] LABS: Alanine Aminotransferase 19 U/L (4-35); Albumin Level 3.1 g/dL (3.5-5.1); Alkaline Phosphatase 58 U/L (38-126); Anion Gap 4 mmol/L (8-16); Aspartate Amino Transferase 38 U/L (14-36); Bilirubin,Total 0.6 mg/dL (0.2-1.3); Blood Urea Nitrogen 9 mg/dL (7-17); Calcium 8.1 mg/dL (8.4-10.2); Carbon Dioxide 29 mmol/L (22-30); Chloride 102 mmol/L (98-107); Estimated CRCL calculation 118 ml/min; Estimated Glomerular Filt Rate > 60; Glucose 117 mg/dL (65-105); Magnesium 1.8 mg/dL (1.6-2.3); Phosphorus 3.4 mg/dL (2.5-4.5); Potassium 3.9 mmol/L (3.4-5.0); Sodium 135 mmol/L (137-145)
[2020-02-17 04:51] LABS: Alveolar/Arterial O2 Gradient 72.5 mmHg; Base Excess ABG -2.1 mEq/l (+/-2.0); Carboxyhemoglobin 0.3 % THb (0-2.0); Fractional Inspired Oxygen 30 %; HCO3 ABG 22.4 mEq/l (22.0-26.0); Methemoglobin ABG 0.1 %THb (0-1.5); Oxygen Content ABG 15.9 %vol (16.0-22.0); Oxygen Saturation ABG 97.4 % (95.0-100.0); PCO2 ABG 37.6 mmHg (35.0-45.0); PO2 ABG 97.2 mmHg (80.0-100.0); PO2 FiO2 Ratio Arterial Blood 3.24 %; Reduced Hemoglobin 3.6 %THb (0-5.0); Total Hemoglobin 11.7 g/dL (12.0-18.0); pH ABG 7.393 (7.350-7.450)
[2020-02-17 04:54] LABS: Arterial Blood Gas PEEP 5 cmH2O; Arterial Blood Gas Tidal Volume 480 ml; Arterial Blood Gas Vent Mode CMV; Arterial Blood Gas Ventilator rate 12 /MIN; Device VENTILATOR; Modified Allen's Test Unable to perform; Site Drawn RIGHT RADIAL
[2020-02-17] MEDS: FENTANYL 2,500MCG/NS250ML(*CRX 2,500 MCG/250 ML BAG 10 MCG IV CONT (06:53)
[2020-02-17] MEDS: MIDAZOLAM HCL (*CRX) 2 MG/2 ML VIAL IV PUSH (06:53)
[2020-02-17] MEDS: CENTRAL LINE FLUSH 10 ML IV PUSH ×4 (07:04→23:00)
[2020-02-17] MEDS: MAGNESIUM SULF 2 GM/WATER 50ML 2 GM/50 ML BAG IVPB (07:58)
[2020-02-17] MEDS: POTASSIUM CHLORIDE 20 MEQ PACKET (FOR LIQUID) FEED TUBE (07:58)
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
--- NOTE | 2020-02-17 14:22 | WPDINTPN ---
Progress Note: A&P Assessment and Plan (1) Acute respiratory failure with hypercapnia: Code(s): J96.02 - Acute respiratory failure with hypercapnia Status: Acute Assessment and Plan: secondary to polysubstance overdose and encephalopathy may have aspirated continue mechanical ventilation at this time on empiric antibiotic Patient on low-dose fentanyl and Versed this morning, has been agitated, awake, alert, follows commands. - ABG this morning unremarkable, patient was placed on brief SBT, RSBI was adequate, good cough response, adequate ventilation good oxygenation. Prior to of 30% and peep of 5. - Patient was successfully extubated on 02/17/2020 hold further IV fluids COVID-19 PCR negative (2) Pulmonary edema: Code(s): J81.1 - Chronic pulmonary edema Status: Acute Assessment and Plan: patient does not have any documented history of congestive heart failure but the CT and chest x-ray suggest pulmonary edema proBNP 983 - echocardiogram done on 02/16/2020 shows EF of 55 to 60% no aortic valve stenosis no LV thickness, LV diastolic function is indeterminate. Right atrial chamber dimension is mildly enlarged (3) Sepsis: Code(s): A41.9 - Sepsis, unspecified organism Status: Acute Assessment and Plan: patient presented with elevated lactic acid level. may have aspirated when she was obtunded chest x-ray reviewed UA negative lactic acid level has normalized since given IV fluids blood cultures are pending patient on empiric vancomycin and Unasyn, will deescalate vancomycin once blood cultures result (4) Acute encephalopathy: Code(s): G93.40 - Encephalopathy, unspecified Status: Acute Assessment and Plan: toxic metabolic encephalopathy - likely secondary to drug overdose /ingestion. head CT was negative TSH was normal UDS positive for opiates amphetamine benzodiazepine and cannabinoids patient responded to Narcan Patient awake on the ventilator and follows commands (5) Opiate overdose: Qualifiers: Encounter type: initial encounter Injury intent: undetermined intent Qualified Code(s): T40.604A - Poisoning by unspecified narcotics, undetermined, initial encounter Code(s): T40.601A - Poisoning by unspecified narcotics, accidental (unintentional), initial encounter Status: Acute Assessment and Plan: patient earlier was on narcan infusion but now is sedated and intubated - will watch for withdrawal symptoms now that patient is extubated (6) Polysubstance abuse: Code(s): F19.10 - Other psychoactive substance abuse, uncomplicated Status: Acute Assessment and Plan: currently sedated - will watch for withdrawal now that patient is extubated (7) Lactic acidosis: Code(s): E87.2 - Acidosis Status: Acute Assessment and Plan: May be secondary to her overdose. level has normalized after patient receiving IV fluids (8) Abnormal glucose: Code(s): R73.09 - Other abnormal glucose Status: Acute Assessment and Plan: normal HgbA1c. could be secondary to stress reaction Accuchecks, SSI Coverage, Hypoglycemic protocol. (9) Suspected 2019 novel coronavirus infection: Code(s): Z20.828 - Contact with and (suspected) exposure to other viral communicable diseases Status: Acute Assessment and Plan: COVID-19 suspected. SARS-CoV-2 PCR NEGATIVE patient is off isolation Additional Plan DVT prophylaxis - Lovenox Stress ulcer prophylaxis - Pepcid Nutrition - NPO Code Status - Full Code Total Critical Care Time - 32 minutes Due to a high probability of clinically significant, life threatening deterioration, the patient required my highest level of preparedness to intervene emergently and I personally spent this critical care time directly and personally managing the patient. This critical care time included obtaining
[2020-02-17 17:54] LABS: Glucose Point of Care 83 (65-105)
--- NOTE | 2020-02-17 18:10 | PM.IMPN ---
Progress Note: A&P Assessment and Plan (1) Acute respiratory failure with hypercapnia: Code(s): J96.02 - Acute respiratory failure with hypercapnia Status: Acute Assessment and Plan: Secondary to opiate drug overdose. Patient required intubated and mechanically ventilated on 02/15/20. Chest x-ray looks to be possible CHF which could be secondary to overdose or even underlying cardiac disease; consider aspirated also. Echo showing normal EF was 55-60%. Patient placed on antibiotics emperically to cover for aspiration with Unasyn and vancomycin. Extubated today. Weaned to room air. Bradycardia improved off sedatives. Continue tele monitoring. Okay to move out of ICU today. Will need sitter and Crisis to see tomorow. Will remove Faust as well. Out of bed to chair. (2) Acute encephalopathy: Code(s): G93.40 - Encephalopathy, unspecified Status: Acute Assessment and Plan: CT brain WNL. Appears to be secondary to acute drug overdose. Symptoms resolving. (3) Opiate overdose: Qualifiers: Encounter type: initial encounter Injury intent: undetermined intent Qualified Code(s): T40.604A - Poisoning by unspecified narcotics, undetermined, initial encounter Code(s): T40.601A - Poisoning by unspecified narcotics, accidental (unintentional), initial encounter Status: Acute Assessment and Plan: Patient started on IV Narcan. She did well and was able to have the Narcan weaned off. (4) Polysubstance abuse: Code(s): F19.10 - Other psychoactive substance abuse, uncomplicated Status: Acute Assessment and Plan: supervisor special services to provide information about DA. (5) Lactic acidosis: Code(s): E87.2 - Acidosis Status: Acute Assessment and Plan: LA 5.3 on admission but with rapid returned to normal with hydration. Thought secondary to the overdose (6) Abnormal glucose: Code(s): R73.09 - Other abnormal glucose Status: Acute Assessment and Plan: A1c only 4.7. Elevated blood sugar probably secondary to stress (7) Suspected 2019 novel coronavirus infection: Code(s): Z20.828 - Contact with and (suspected) exposure to other viral communicable diseases Status: Acute Assessment and Plan: The patient has been swabbed for Covid-19 and found to be negative. (8) DVT prophylaxis: Code(s): Z29.9 - Encounter for prophylactic measures, unspecified Status: Acute Assessment and Plan: Lovenox Subjective Date/time seen: 02/17/20 18:10 Interval history: Date of visit 02/16 54yo female found down by her from an apparent drug overdose. Lethargic and brought to the emergency room where she is eventually intubated. Urine drug screen positive for benzodiazepine, amphetamines, opiates, and cannabis. told staff that the patient had sent him text threatening suicide. Assuming care. Chart reviewed. Patient extubated today. She feels okay. Denies chest, abd or back pain. She does admit to taking drugs but denies that this was a suicide attempt. She states she did not mean what she texted to her . She has a productive cough. She has depression and states her is 'mean' and she 'just want him to be nice to me' that she repeats. Exam Narrative: Exam Narrative: AF 98.6 108/95 47 16 92% Gen - NARD lying flat in bed Chest - bibasialr inspir rhonchi, good airexchange CV - RRR S1/S2; Tele showing bradycardia to 30's but was on sedation at the time. Abd - soft, NT.ND, +BS - Faust secured draining clear yellow urine Ext - no pedal edema Psych - soft voice, cries frequently, poor eye contact Objective Data Vital Signs Vital Signs: Vital Signs - 24 hr 02/16/20 19:00 02/16/20 19:15 02/16/20 19:30 Temperature Pulse Rate 68 65 57 L Respiratory Rate 15 15 20 Blood Pressure Pulse Oximetry 02/16/20 19:45 1
--- NOTE | 2020-02-17 22:23 | ADMGEN ---
This patient, Shaneka Dillon, was admitted to Medical Room 245-. Patient/family oriented to hospital policies and general routines including ID bracelet, bed and alarms, visiting hours, pain management, procedures, bathroom and other care routines, personal items, smoking policy, room service/diet, and visiting hours. Information on how to activate the Rapid Response Team has been discussed. Patient/Family are encouraged to report perceived risks to care and to ask questions if they do not understand what they are told or what they should do.
[2020-02-17] MEDS: FAMOTIDINE 20 MG TABLET PO (22:31)
[2020-02-18] VITALS (13 sets, daily range): BP systolic 87–119; BP diastolic 42–58; PULSE 5–89; RESP 16–20; TEMP 36.2–36.8; O2SAT 92–99
[2020-02-18 00:28] LABS: Glucose Point of Care 111 (65-105)
[2020-02-18] MEDS: AMPICILLIN SULB 1.5 GM/NS 50ML 1.5 GM/50 ML VIAL IVPB ×4 (04:10→21:18)
[2020-02-18 06:22] LABS: Hematocrit 29.4 % (37.0-47.0); Hemoglobin 10.1 g/dL (12.0-15.0); Mean Corpuscular HGB Conc 34.4 g/dl (32-36); Mean Corpuscular Hemoglobin 31.3 pg (26-34); Mean Platelet Volume 10.3 fl (7.4-10.4); Platelet Count Result 230 k/mm3 (150-375); Red Blood Count 3.23 M/mm3 (4.2-5.4); Red Cell Distribution Width 13.2 % (11.5-14.5); White Blood Count 8.4 K/mm3 (4.5-10.0)
[2020-02-18] MEDS: CENTRAL LINE FLUSH 10 ML IV PUSH ×3 (06:36→13:11)
[2020-02-18 06:38] LABS: Glucose Point of Care 95 (65-105)
[2020-02-18 06:38] LABS: Alanine Aminotransferase 16 U/L (4-35); Albumin Level 2.9 g/dL (3.5-5.1); Alkaline Phosphatase 48 U/L (38-126); Anion Gap 5 mmol/L (8-16); Aspartate Amino Transferase 32 U/L (14-36); Bilirubin,Total 0.4 mg/dL (0.2-1.3); Blood Urea Nitrogen 6 mg/dL (7-17); Calcium 7.7 mg/dL (8.4-10.2); Carbon Dioxide 30 mmol/L (22-30); Chloride 103 mmol/L (98-107); Estimated CRCL calculation 100 ml/min; Estimated Glomerular Filt Rate > 60; Glucose 82 mg/dL (65-105); Magnesium 1.6 mg/dL (1.6-2.3); Potassium 3.2 mmol/L (3.4-5.0); Sodium 138 mmol/L (137-145)
[2020-02-18] MEDS: IBUPROFEN 400 MG TABLET PO (06:55)
[2020-02-18] MEDS: CENTRAL LINE FLUSH 10 ML XX (07:21)
[2020-02-18] MEDS: POTASSIUM CHLORIDE 20 MEQ TABLET 40 MEQ PO (07:34)
[2020-02-18 08:24] LABS: Vancomycin Trough 9.2 ug/mL (10.0-20.0)
[2020-02-18] MEDS: FAMOTIDINE 20 MG TABLET PO ×2 (09:24→21:47)
[2020-02-18] MEDS: ENOXAPARIN 40 MG/0.4 ML SYRINGE SUB-Q (13:10)
--- NOTE | 2020-02-18 14:18 | PM.IMPN ---
Progress Note: A&P Assessment and Plan (1) Acute respiratory failure with hypercapnia: Code(s): J96.02 - Acute respiratory failure with hypercapnia Status: Acute Assessment and Plan: Secondary to opiate drug overdose. Patient required intubated and mechanically ventilated on 02/15/20. Chest x-ray looks to be possible CHF which could be secondary to overdose but less likely underlying cardiac disease; consider aspiration also. Echo showing normal EF was 55-60%. Patient placed on antibiotics empirically to cover for aspiration with Unasyn and vancomycin. Extubated 02/16. CXR today showng evidence of infection so continue abx to complete a course. Will stop Vanco. Currently on 2L now. Bradycardia better. Okay to stop tele monitoring. Continue with sitter. Increase activity. (2) Acute encephalopathy: Code(s): G93.40 - Encephalopathy, unspecified Status: Acute Assessment and Plan: CT brain WNL. Appears to be secondary to acute drug overdose. Symptoms resolving. (3) Opiate overdose: Qualifiers: Encounter type: initial encounter Injury intent: undetermined intent Qualified Code(s): T40.604A - Poisoning by unspecified narcotics, undetermined, initial encounter Code(s): T40.601A - Poisoning by unspecified narcotics, accidental (unintentional), initial encounter Status: Acute Assessment and Plan: Patient started on IV Narcan. She did well and was able to have the Narcan weaned off. has texts that show patient was taking drugs in a suicide attempt. Will need Crisis to see once she is ready for discharge which might be tomorrow. (4) Polysubstance abuse: Code(s): F19.10 - Other psychoactive substance abuse, uncomplicated Status: Acute Assessment and Plan: learning support services director to provide information about DA. (5) Lactic acidosis: Code(s): E87.2 - Acidosis Status: Acute Assessment and Plan: LA 5.3 on admission but with rapid returned to normal with hydration. Thought secondary to the overdose. (6) Abnormal glucose: Code(s): R73.09 - Other abnormal glucose Status: Acute Assessment and Plan: A1c only 4.7. Elevated blood sugar probably secondary to stress. (7) Suspected 2019 novel coronavirus infection: Code(s): Z20.828 - Contact with and (suspected) exposure to other viral communicable diseases Status: Acute Assessment and Plan: The patient has been swabbed for Covid-19 and found to be negative. (8) DVT prophylaxis: Code(s): Z29.9 - Encounter for prophylactic measures, unspecified Status: Acute Assessment and Plan: Lovenox Subjective Date/time seen: 02/18/20 14:18 Interval history: Date of visit 02/17 54yo female found down by her from an apparent drug overdose. Lethargic and brought to the emergency room where she is eventually intubated. Urine drug screen positive for benzodiazepine, amphetamines, opiates, and cannabis. told staff that the patient had sent him text threatening suicide. Patient extubated 02/16. She feels better overall. A lot of complaints about staff cursing at her and doing a procedure that caused her to have difficulty breathing. No cough today. No CP. Voiding well. No anosmia or dysgeusia. Exam Narrative: Exam Narrative: AF 97.8 108/53 64 18 97% 2L Gen - NARD lying semirecumbent in bed Chest - few basilar inspiratory crackles, nml RR CV - RRR S1/S2; Tele showing bradycardia to 40-50's at times but only briefly Abd - soft, NT.ND, +BS Ext - no pedal edema Psych - cries frequently, poor eye contact, odd affect Skin - warm and dry Objective Data Vital Signs Vital Signs: Vital Signs - 24 hr 02/17/20 16:00 02/17/20 18:00 02/17/20 20:00 Temperature 98.6 F Pulse Rate 55 L 47 L Respiratory Rate 18 16 Blood Pressure 108/95 H Pulse Oximetry 92 97 02/17/20
[2020-02-18] MEDS: NEOMYCIN/POLYMYXIN/BACITRACIN OINTMENT PACKET 1 PACKET (17:55)
[2020-02-19 02:00] VITALS: BP 114/61; PULSE 60; RESP 16; TEMP 36.6; O2SAT 96
[2020-02-19] MEDS: AMPICILLIN SULB 1.5 GM/NS 50ML 1.5 GM/50 ML VIAL IVPB ×2 (04:08→11:30)
[2020-02-19 06:00] VITALS: BP 130/72; PULSE 60; RESP 16; TEMP 36.6; O2SAT 97
[2020-02-19] MEDS: FAMOTIDINE 20 MG TABLET PO (08:08)
[2020-02-19 08:13] VITALS: O2SAT 98
[2020-02-19 10:00] VITALS: BP 134/72; PULSE 67; RESP 16; TEMP 36.2; O2SAT 97
--- NOTE | 2020-02-19 11:28 | PCNFU ---
Nutrition Follow-Up Complete: Inadequate oral intake related to oral intubation as evidenced by NPO status. Goal: Patient to meet estimated nutritional needs. Patient is meeting nutrition goal. No new goal. Pt current nutrition is Regular,Level 7. Nutrition recommendation: Agree Last recorded weight is 81.1 kg, no new weight to report. Bowel Motility:No BM reported. Labs Reviewed: K 3.2,Hct 29.4,Hgb 10.1 Meds Noted:Pepsid Additional Notes: Nutrition follow up. Patient has advanced to a regular diet. Intake's around 50% of meals. Crisis consult. Agree with diet orders. Monitoring: Follow up every 5 days.
[2020-02-19 14:00] VITALS: BP 133/55; PULSE 68; RESP 16; TEMP 36.8; O2SAT 98
--- NOTE | 2020-02-19 16:03 | PM.IMPN ---
Progress Note: A&P Assessment and Plan (1) Acute respiratory failure with hypercapnia: Code(s): J96.02 - Acute respiratory failure with hypercapnia Status: Acute Assessment and Plan: Secondary to opiate drug overdose. Patient required intubated and mechanically ventilated on 02/15/20. Chest x-ray looks to be possible CHF which could be secondary to overdose but less likely underlying cardiac disease; consider aspiration also. Echo showing normal EF of 55-60%. Patient placed on antibiotics empirically to cover for aspiration with Unasyn and vancomycin. Extubated 02/16. CXR 02/17 showing scattered small regions of atelectasis and infiltrates. Vanco stopped 02/17. Off supplemental O2 now. Will change to Augmentin. (2) Acute encephalopathy: Code(s): G93.40 - Encephalopathy, unspecified Status: Acute Assessment and Plan: CT brain WNL. Appears to be secondary to acute drug overdose. Symptoms resolved (3) Opiate overdose: Qualifiers: Encounter type: initial encounter Injury intent: undetermined intent Qualified Code(s): T40.604A - Poisoning by unspecified narcotics, undetermined, initial encounter Code(s): T40.601A - Poisoning by unspecified narcotics, accidental (unintentional), initial encounter Status: Acute Assessment and Plan: Patient started on IV Narcan on admission. She did well and was able to have the Narcan weaned off. has texts that show patient was threatening suicide. Crisis to see today for possible placement. Continue sitter. (4) Polysubstance abuse: Code(s): F19.10 - Other psychoactive substance abuse, uncomplicated Status: Acute Assessment and Plan: instructional support services director to provide information about DA. (5) Lactic acidosis: Code(s): E87.2 - Acidosis Status: Acute Assessment and Plan: LA 5.3 on admission but with rapid returned to normal with hydration. Thought secondary to the overdose. (6) Abnormal glucose: Code(s): R73.09 - Other abnormal glucose Status: Acute Assessment and Plan: A1c only 4.7. Elevated blood sugar probably secondary to stress. (7) Suspected 2019 novel coronavirus infection: Code(s): Z20.828 - Contact with and (suspected) exposure to other viral communicable diseases Status: Acute Assessment and Plan: The patient has been swabbed for Covid-19 and found to be negative. (8) DVT prophylaxis: Code(s): Z29.9 - Encounter for prophylactic measures, unspecified Status: Acute Assessment and Plan: [facility] Subjective Date/time seen: 02/19/20 16:03 Interval history: Date of visit 02/18 54yo female found down by her from an apparent drug overdose. Lethargic and brought to the emergency room where she is eventually intubated. Urine drug screen positive for benzodiazepine, amphetamines, opiates, and cannabis. told staff that the patient had sent him text threatening suicide. Patient extubated 02/16. Patient feels well. No complaints. She states that she is tired of laying in bed. Exam Narrative: Exam Narrative: AF 133/55 68 16 98% Gen - NARD Chest - CTA bilaterally, nml RR CV - RRR S1/S2 Abd - soft, NT.ND, +BS Ext - no pedal edema Psych - nml mood, odd affect Objective Data Vital Signs Vital Signs: Vital Signs - 24 hr 02/18/20 18:00 02/18/20 20:00 02/18/20 20:52 Temperature 97.1 F L 97.8 F Pulse Rate 60 64 Respiratory Rate 18 16 Blood Pressure 99/56 L 112/58 L Pulse Oximetry 95 92 99 02/18/20 21:08 02/19/20 02:00 02/19/20 06:00 Temperature 97.9 F 97.8 F Pulse Rate 58 L 60 60 Respiratory Rate 16 16 Blood Pressure 114/61 130/72 Pulse Oximetry 95 96 97 02/19/20 08:13 02/19/20 10:00 02/19/20 14:00 Temperature 97.1 F L 98.3 F Pulse Rate 67 68 Respiratory Rate 16 16 Blood Pressure 134/72 133/55 L Pulse Oximetry 98 97 98
[2020-02-19 18:00] VITALS: BP 142/69; PULSE 49; RESP 16; TEMP 36.7; O2SAT 97
--- NOTE | 2020-02-19 18:00 | PM.TDS ---
Transfer Discharge Sum: Prov Provider Date of admission: 02/14/20 22:27 Primary care physician: PHYSICIAN NOT ON STAFF Admitting clinician: Lucas Nicholson MD Consults: 02/14/20 22:28 Consult to Physician Routine Comment: Consulting Provider: Melchor Ibanez Reason for consultation: overdose, narcan infusion Has provider been notified: Yes 02/17/20 Care Coordination Consult Routine Comment: Drug abuse; needs info on DA Reason for Consult:: Abuse Attending physician on discharge: Babar Arenas Discharging clinician: Babar Arenas Anticipated date of transfer: 02/19/20 Receiving physician/facility: [facility]. Dr Michelle is accepting DS: Admitting Diagnosis Admitting Diagnosis Admitting Diagnosis: Overdose DS: Discharge Diagnosis Discharge Diagnosis (1) Acute respiratory failure with hypercapnia: Code(s): J96.02 - Acute respiratory failure with hypercapnia Status: Acute Assessment and Plan: Secondary to opiate drug overdose. Patient required intubated and mechanically ventilated on 02/15/20. Chest x-ray looks to be possible CHF which could be secondary to overdose but less likely underlying cardiac disease; consider aspiration also. Echo showing normal EF of 55-60%. Patient placed on antibiotics empirically to cover for aspiration with Unasyn and vancomycin. Extubated 02/16. CXR 02/17 showing scattered small regions of atelectasis and infiltrates. Vanco stopped 02/17. Off supplemental O2 now. She was changed to Augmentin. CONTINUE AUGMENTIN THROUGH 02/21/20. (2) Acute encephalopathy: Code(s): G93.40 - Encephalopathy, unspecified Status: Acute Assessment and Plan: CT brain WNL. Appears to be secondary to acute drug overdose. Symptoms resolved (3) Opiate overdose: Qualifiers: Encounter type: initial encounter Injury intent: undetermined intent Qualified Code(s): T40.604A - Poisoning by unspecified narcotics, undetermined, initial encounter Code(s): T40.601A - Poisoning by unspecified narcotics, accidental (unintentional), initial encounter Status: Acute Assessment and Plan: Patient started on IV Narcan on admission. She did well and was able to have the Narcan weaned off. has texts that show patient was threatening suicide. Crisis saw patient and placement arranged. (4) Polysubstance abuse: Code(s): F19.10 - Other psychoactive substance abuse, uncomplicated Status: Acute Assessment and Plan: central services tech to provide information about DA. (5) Lactic acidosis: Code(s): E87.2 - Acidosis Status: Acute Assessment and Plan: LA 5.3 on admission but with rapid returned to normal with hydration. Thought secondary to the overdose. (6) Abnormal glucose: Code(s): R73.09 - Other abnormal glucose Status: Acute Assessment and Plan: A1c only 4.7. Elevated blood sugar probably secondary to stress. (7) Suspected 2019 novel coronavirus infection: Code(s): Z20.828 - Contact with and (suspected) exposure to other viral communicable diseases Status: Acute Assessment and Plan: The patient has been swabbed for Covid-19 and found to be negative. Repeat swab pending Transfer Discharge Sum: Med Medications Active and Home Medications: Home Medications buspirone 7.5 mg PO BID 02/15/20 [History Confirmed 02/15/20] zolpidem 7.5 mg PO HS PRN 02/15/20 [History Confirmed 02/15/20] diazepam [Valium] 10 mg PO TID PRN 02/18/20 [History Confirmed 02/18/20] Active Medications Amoxicillin/Clavulanate Potassium (Amoxicillin/Clavulanate K 875-125 Mg Tab) 1 tablet PO Q12HR POP Dextrose (Dextrose 50% 25 Gm/50 Ml Syringe) 12.5 gm IV PUSH PRN PRN; Protocol PRN Reason: Hypoglycemia Last Admin: 02/15/20 13:16 Dose: 12.5 gm Documented by: Enoxaparin Sodium (Enoxaparin 40 Mg/0.4 Ml Syringe) 40 mg SUB-Q DAILY@1300 POP Last Admin
[2020-02-19 19:54] LABS: SARS-CoV-2 RNA PCR Negative
--- NOTE | 2020-02-19 21:11 | PCDIET ---
Left floor at 1943.
--- NOTE | 2020-02-20 10:11 | PC.NURSE ---
COVID is negative. Dr. Arenas aware.
== END 2020-02-19 19:43 | disposition short-term general hospital (02) | DRG 917 ==
LOC: ANHED 23:07 → ANHICU 02-15 05:06 → ANH2MED 02-18 18:15 → ANHICU 02-23 13:19
PROVIDERS: Internal Medicine; Admitting Provider Family Medicine; Emergency Provider Emergency Medicine; Visit Provider Internal Medicine
DX: T40.604A Poisoning by unspecified narcotics, undetermined, initial encounter (principal); G92 Toxic encephalopathy; J96.02 Acute respiratory failure with hypercapnia; J69.0 Pneumonitis due to inhalation of food and vomit; J81.1 Chronic pulmonary edema; E87.2 Acidosis; Z20.828 Contact with and (suspected) exposure to other viral communicable diseases; F19.10 Other psychoactive substance abuse, uncomplicated; F15.10 Other stimulant abuse, uncomplicated; R73.09 Other abnormal glucose; Z90.710 Acquired absence of both cervix and uterus; Z90.722 Acquired absence of ovaries, bilateral
CPT/HCPCS: 36415; 36600; 70450; 71045; 72125; 80048; 80053; 80202; 80307; 81001; 81025; 82375; 82550; 82565; 82805; 82948; 83036; 83050; 83605; 83735; 83880; 84100; 84443; 84484; 84702; 85025; 85027; 85610; 85730; 86140; 87040; 87635; 93005; 93306; 94002; 94003; 96361; 96365; 96375; 99285; A9270; C1751; C9803; J0295; J1630; J1650; J2250; J2310; J2405; J2704; J3010; J3370; J3475; J7030; J7050; U0003

== ENCOUNTER 2021-10-31 09:47 | Outpatient (CLI) | payer OTHER, SELFPAY ==
--- NOTE | ~2021-10-31 | XR_ITS ---
EXAMINATION:[id number] DATE: 10/31/2021 10:19 INDICATION: Neck pain TECHNIQUE: AP, lateral, and odontoid views of the cervical spine are provided. COMPARISON: 02/14/2020 FINDINGS: There are 2 mm retrolisthesis of C5 on C6. The odontoid is intact. No fracture is identifie d. The vertebral body heights are normal. There is moderate to severe loss of intervertebral disc spa ce height at C4-5, C5-6, and C6-7. Small degenerative osteophytes project from the anterior endplates of multiple vertebral bodies. There is mild to moderate facet and uncovertebral joint osteoarthritis at multiple levels in the cervical spine. Prevertebral soft tissues are normal. IMPRESSION: 1. Moderate cervical spondylosis without acute findings. Reviewed, dictated and finalized at location B.
--- NOTE | ~2021-10-31 | XR_ITS ---
EXAMINATION: XR lumbar spine 2-3V DATE: 10/31/2021 10:19 INDICATION: Low back pain TECHNIQUE: Anteroposterior and lateral views of the lumbar spine, and cone-down lateral view of the l umbosacral junction were obtained. COMPARISON: None. FINDINGS: There is no fracture, dislocation, or subluxation. The vertebral body heights are normal. T here is moderate loss of intervertebral disc space height at L4-5 and L5-S1. There is mild loss of di sc space height at L2-3. Small degenerative osteophytes project from the anterior endplates of multip le vertebral bodies. There is moderate facet osteoarthritis of the lower lumbar spine. IMPRESSION: 1. Mild to moderate lumbar spondylosis without acute findings. Reviewed, dictated and finalized at location B.
[2021-10-31 10:22] LABS: Basophils Percent Auto 0.3 % (0.2-1.2); Eosinophils Absolute Auto 0.1 K/mm3 (0-0.3); Hematocrit 41.7 % (37.0-47.0); Hemoglobin 14.3 g/dL (12.0-15.0); Immature Granulocyte Absolute 0.03 K/mm3 (0.00-0.031); Immature Granulocyte Percent A 0.3 % (0-0.5); Lymphocytes Absolute Auto 1.93 K/mm3 (0.9-3.2); Lymphocytes Percent Auto 19.5 % (18.3-44.2); Mean Corpuscular HGB Conc 34.3 g/dl (32-36); Mean Corpuscular Volume 90.3 fl (80-100); Mean Platelet Volume 9.8 fl (7.4-10.4); Monocytes Absolute Auto 0.6 K/mm3 (0.1-0.6); Monocytes Percent Auto 6.4 % (2.6-8.5); Neutrophils Absolute Auto 7.2 K/mm3 (1.3-6.7); Neutrophils Percent Auto 72.5 % (45.5-73.1); Platelet Count Result 338 k/mm3 (150-375); Red Blood Count 4.62 M/mm3 (4.2-5.4); White Blood Count 9.9 K/mm3 (4.5-10.0)
[2021-10-31 10:33] LABS: Alanine Aminotransferase 24 U/L (6-35); Albumin Level 4.3 g/dL (3.5-5.1); Alkaline Phosphatase 67 U/L (38-126); Anion Gap 9 mmol/L (8-16); Aspartate Amino Transferase 28 U/L (14-36); Bilirubin,Total 0.7 mg/dL (0.2-1.3); Blood Urea Nitrogen 13 mg/dL (7-17); Calcium 9.6 mg/dL (8.4-10.2); Carbon Dioxide 26 mmol/L (22-30); Chloride 106 mmol/L (98-107); Estimated Glomerular Filt Rate > 60; Glucose 115 mg/dL (65-110); Potassium 4.2 mmol/L (3.4-5.0); Sodium 141 mmol/L (137-145)
[2021-10-31 11:09] LABS: Free T4 Free Thyroxine 1.28 ng/mL (0.78-2.19)
== END 2021-10-31 09:48 | disposition home or self-care (01) ==
PROVIDERS: PCP Internal Medicine; Visit Provider Psychiatry & Neurology Neurology
DX: M54.50 Low back pain, unspecified (principal); G89.29 Other chronic pain; R41.3 Other amnesia; M54.2 Cervicalgia; M47.816 Spondylosis without myelopathy or radiculopathy, lumbar region; M47.812 Spondylosis without myelopathy or radiculopathy, cervical region
CPT/HCPCS: 36415; 72040; 72100; 80053; 84439; 85025

== ENCOUNTER 2021-12-06 16:29 | Emergency (ER) | payer OTHER, SELFPAY ==
[2021-12-06 16:39] VITALS: BP 102/58; PULSE 57; RESP 18; TEMP 36.4; O2SAT 99
--- NOTE | 2021-12-06 17:07 | ED.GENADULT ---
HPI - General Adult General Chief complaint: Dental/Oral Stated complaint: toothache History of Present Illness HPI narrative: 56 y/o female. PMHx Panic Dx, JOHN, Small cell carcinoma intracranial, Hypothyroid, Substance abuse. Presents to [facility] today with acute complaints of RT upper dental pain, worsening in the past 1 week. Client reports worsening swelling and pain to her RT upper molar. No fever. No dental trauma. She tells me she called the local dentist, however was unable to pay for the visit. Related Data Home Medications Medication Instructions Recorded Confirmed alprazolam 0.5 mg tablet 0.5 mg TID 12/06/21 12/06/21 propranolol 20 mg tablet 20 mg BID 12/06/21 12/06/21 zolpidem 12.5 mg tablet,extended 12.5 mg PO HS 12/06/21 12/06/21 release,multiphase Allergies Allergy/AdvReac Type Severity Reaction Status Date / Time No Known Allergies Allergy Verified 12/06/21 17:00 Review of Systems Review of Systems: CONSTITUTIONAL: Denies fever, chills, sweats. EYES: Denies visual changes, redness, discharge. ENT: Denies rhinorrhea, congestion, sore throat, otalgia. Positive Toothache. CARDIOVASCULAR: Denies chest pain, palpitations, edema. RESPIRATORY: Denies dyspnea, wheezing, cough GASTROINTESTINAL: Denies abdominal pain, nausea, vomiting, diarrhea. GENITOURINARY: Denies dysuria, hematuria, abnormal discharge SKIN: Denies rash or itching. MUSCULOSKELETAL: Denies acute back pain, joint pain, or myalgia. NEUROLOGIC: Denies numbness, or focal weakness. PSYCHIATRIC: Denies anxiety or depression. 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 No significant past medical history Olecranon bursitis, right elbow Rheumatoid arthritis per patient questionnaire Sleep disorder Weight gain Surgical History Surgical History History of total hysterectomy with bilateral salpingo-oophorectomy (BSO) Family History Family History Mother Diabetes mellitus Sibling Diabetes mellitus Other Arthritis Depression HLD (hyperlipidemia) Hypertension Social History Social History Smoking status: Current some day smoker Tobacco type: cigars Second hand tobacco smoke exposure: Yes Alcohol intake: never Substance use: never Substance use type: does not use Additional occupation/education comments: disabled Gender identity (if verbalized by the patient): Female Spiritual care concerns: No Exam Narrative: GENERAL: This is a well-nourished, well-developed adult, in no apparent distress. HEAD: normocephalic, atraumatic. EYES: PERRL. Sclera clear/white. EARS: External ears amado. NOSE: External nose normal. THROAT: Mucous membranes moist. MOUTH: With soft tissue swelling and tenderness overlying RT upper molar spaces # 3-4. No appreciable fluctuance. Dental decay. NECK: Neck supple, non-tender without lymphadenopathy, masses or thyromegaly. CARDIOVASCULAR: Regular rate and rhythm. RESPIRATORY: Clear to auscultation. GASTROINTESTINAL: Abdomen soft, non-tender. SKIN: warm, intact NEURO: Alert, active, and age appropriate. Course Course Level of Care: Express Care Visit Vital Signs Vital signs: Vital Signs Temperature 36.4 C 12/06/21 16:39 Pulse Rate 57 L 12/06/21 16:39 Respiratory Rate 18 12/06/21 16:39 Blood Pressure 102/58 L 12/06/21 16:39 Pulse Oximetry 99 12/06/21 16:39 Oxygen Delivery Room Air 12/06/21 16:39 Temperature 36.4 C 12/06/21 16:39 Pulse Rate 57 L 12/06/21 16:39 Respiratory Rate 18 12/06/21 16:3
== END 2021-12-06 17:10 | disposition home or self-care (01) ==
PROVIDERS: Emergency Provider Nurse Practitioner Adult Health; PCP Internal Medicine
DX: K04.7 Periapical abscess without sinus (principal); F17.290 Nicotine dependence, other tobacco product, uncomplicated; E03.9 Hypothyroidism, unspecified; E05.90 Thyrotoxicosis, unspecified without thyrotoxic crisis or storm; Z85.841 Personal history of malignant neoplasm of brain
CPT/HCPCS: 99213; G0463

== ENCOUNTER 2021-12-13 15:24 | Outpatient (CLI) | payer OTHER, SELFPAY ==
--- NOTE | ~2021-12-13 | CT_ITS ---
EXAMINATION: CT brain wo con DATE: 12/13/2021 15:45 INDICATION: Memory loss. Frontal headache. TECHNIQUE: Computed tomography (CT) of the head was performed without intravenous contrast. The mA wa s adjusted according to patient size. Iterative reconstruction technique was employed. The dose-lengt h product was 605.33 mGy-cm. COMPARISON: Head CT 02/14/2020 FINDINGS: There is chronic encephalomalacia involving the bilateral globi pallidi. There is no intrac ranial hemorrhage, acute infarction, or abnormal intracranial mass lesion. The ventricles are normal in size. The paranasal sinuses are clear. The mastoid air cells are normal. The orbits are normal. IMPRESSION: 1. 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 This finding may be secondary to anoxic brain injury, metabolic abnormality, or toxic exposure. Reviewed, dictated and finalized at location A. IMPRESSION: 1. 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 This finding may be secondary to anoxic brain injury, metabolic abnormali ty, or toxic exposure.
== END 2021-12-13 15:25 | disposition home or self-care (01) ==
LOC: ANHIMG 15:26
PROVIDERS: PCP Internal Medicine; Visit Provider Psychiatry & Neurology Neurology
DX: R41.3 Other amnesia (principal); G93.89 Other specified disorders of brain
CPT/HCPCS: 70450

== ENCOUNTER 2023-11-23 10:39 | Emergency (ER) | payer MEDICARE, SELFPAY ==
--- NOTE | ~2023-11-23 | XR_ITS ---
XR knee LT min 4V 11/23/2023 11:28 Indication: Left knee pain Procedure: 4 views left knee Comparison: No prior studies for comparison. Findings: No fracture, subluxation or dislocation. There is anatomic alignment. No joint effusion. No foreign bodies. Impression: 1: No acute fracture. Reviewed, dictated and finalized at location B. Impression: 1: No acute fracture.
--- NOTE | ~2023-11-23 | XR_ITS ---
XR foot RT min 3V Ordering provider: Luis Morales APRN History: . lateral foot pain/injury last night . Comparison: None. FINDINGS: BONES: No acute fracture or dislocation. JOINT SPACES: Normal. No tarsal coalition. SOFT TISSUES: Normal. IMPRESSION: No acute osseous abnormality of the right foot. Reviewed, dictated and finalized at location A.
--- NOTE | ~2023-11-23 | XR_ITS ---
XR ankle RT min 3V 11/23/2023 11:28 Indication: Lateral ankle pain after fall Procedure: 4 views right ankle Comparison: No prior studies for comparison. Findings: Ankle mortise intact. Mild lateral soft tissue swelling. There are small ossific densities lateral to the talus on the AP view, suspicious for avulsion fractures.. Talar dome is normal. Ankle mortise within normal limits. Impression: 1: Possible avulsion fractures lateral margin of the talus. Mild lateral soft tissue swelling. Reviewed, dictated and finalized at location B. Impression: 1: Possible avulsion fractures lateral margin of the talus. Mild lateral soft t issue swelling.
--- NOTE | 2023-11-23 10:59 | ED.LOWEXIN ---
HPI - Extremity Injury (Lower) General Chief Complaint: Extremity Problem,Nontraumatic Stated Complaint: RT foot injury Time Seen by Provider: 11/23/23 11:05 Source: patient Mode of arrival: ambulatory Limitations: no limitations History of Present Illness HPI Narrative: Shaneka is a 58-year-old female who presents today with complaints of right ankle/foot pain. She was playing cards last night and when she stood up her leg was asleep -she rolled her right ankle and fell. Is having pain to the lateral right foot and ankle. She denies any loss of consciousness, neck pain, or head trauma. On her way in to the clinic today she lost her balance and fell onto her left knee in the parking lot. Abrasions to the anterior inferior knee. Related Data Allergies Allergy/AdvReac Type Severity Reaction Status Date / Time No Known Allergies Allergy Verified 11/23/23 11:02 Review of Systems Review of Systems: Pertinent positives per HPI. Patient denies any fever, chills, rash, headache, visual changes, dizziness, cough, runny nose, sore throat, shortness of breath, chest pain, palpitations, nausea, vomiting, diarrhea, constipation, abdominal pain, or any urinary issues. 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 No significant past medical history Olecranon bursitis, right elbow Rheumatoid arthritis per patient questionnaire Sleep disorder Weight gain Surgical History Surgical History History of total hysterectomy with bilateral salpingo-oophorectomy (BSO) Family History Family History Mother Diabetes mellitus Sibling Diabetes mellitus Other Arthritis Depression HLD (hyperlipidemia) Hypertension Social History Social History Smoking status: Current some day smoker Second hand tobacco smoke exposure: Yes Alcohol intake: never Substance use: current Substance use type: marijuana Lack of Transportation: No Lack of Food: Never True Current Housing: I Have Housing Concerned About Future Housing: No Difficulty Paying Gas/Electric Bills: No Difficulty Paying for Meds: No Currently Unemployed: Decline to Answer Education: High School Diploma/GED Difficulty w/ Childcare or Family Care: No Living arrangements: with friend(s) Occupation/Education: unemployed Additional occupation/education comments: disabled Gender identity (if verbalized by the patient): Female Spiritual care concerns: No Comments At the time of my signature, I reviewed and agree with the nursing past medical, surgical, social, and family history. There is no relevant family history pertinent to the patient complaint. Exam Narrative: General: Well-developed, well nourished, in no apparent distress Head: Normocephalic, atraumatic. Eyes: EOMI and PERRLA. Cardio: Regular rate and rhythm, s1 and s2 normal, no murmur appreciated. Resp: Clear to auscultation bilaterally, no rhonchi, rales, wheezing or rubs. Integumentary: Skin warm and dry. Abrasion to the left anterior knee. Musculoskeletal: Right lateral ankle and press tender star signal to palpation, grossly normal range of motion, muscle strength strong and equal, peripheral pulse strong, mild right lateral ankle edema, no cyanosis. Course Course Emergency Course: Portions of this record may have been created with voice recognition software. Level of Care: Express Care Visit Vital Signs Vital signs: Vital Signs Temperature 36.4 C 11/23/23 11:02 Pulse Rate 76 11/23/23 11:02 Respiratory Rate 18 11/23/23 11
[2023-11-23 11:02] VITALS: BP 107/69; PULSE 76; RESP 18; TEMP 36.4; O2SAT 100
== END 2023-11-23 12:05 | disposition home or self-care (01) ==
PROVIDERS: Emergency Provider Nurse Practitioner Family; PCP Family Medicine
DX: S80.212A Abrasion, left knee, initial encounter (principal); S93.401A Sprain of unspecified ligament of right ankle, initial encounter; S92.154A Nondisplaced avulsion fracture (chip fracture) of right talus, initial encounter for closed fracture; X50.9XXA Other and unspecified overexertion or strenuous movements or postures, initial encounter; E03.9 Hypothyroidism, unspecified; E05.90 Thyrotoxicosis, unspecified without thyrotoxic crisis or storm; Z85.841 Personal history of malignant neoplasm of brain; F17.200 Nicotine dependence, unspecified, uncomplicated; F12.90 Cannabis use, unspecified, uncomplicated
CPT/HCPCS: 29515; 73564; 73610; 73630; 99214; G0463